=== PATIENT | female | born 1980 | race Caucasian/White ===

== ENCOUNTER 2018-06-26 12:58 | Emergency (ER) | payer BC ==
[~2018-06-26] VITALS: Ht 175.3 cm; Wt 65.9 kg
[2018-06-26 13:04] VITALS: TEMP 99
[2018-06-26 13:36] LABS: BASO # 0.1 (0.0-0.2); BASO % 0.5 % (0.0-2.0); EOS % 0.2 % (0-4.0); GRAN % 64.3 % (42.2-75.2); HEMOGLOBIN 12.3 g/dl (12.5-16.0); LYMPH # 2.7 (1.2-3.4); MEAN CELL VOLUME 92 fl (80.0-100.0); MEAN CORPUSCULAR HEMOGLOBIN 31 pg (27.0-31.0); MEAN CORPUSCULAR HGB CONC 33 g/dl (33.0-37.0); MEAN PLATELET VOLUME 9.6 fl (7.4-10.4); MONO # 0.5 (0.1-0.6); MONO % 5.8 % (1.7-9.3); PLATELET COUNT 240 K/mm3 (130-400); RED BLOOD COUNT 4.03 M/mm3 (4.10-5.30); REDCELL DISTRIBUTION WIDTH-CV 12.4 % (11.5-14.5)
[2018-06-26 13:46] LABS: BILIRUBIN,TOTAL 0.4 mg/dL (0.0-1.0); CALCIUM 8.9 mg/dL (8.4-10.2); CREATININE, serum 0.69 mg/dL (0.52-1.25); POTASSIUM 3.9 mmol/L (3.4-5.0); TOTAL PROTEIN 7.1 gm/dL (6.4-8.2)
[2018-06-26 13:57] LABS: TROPONIN-I 0.013 ng/mL (0.000-0.034)
[2018-06-26] MEDS ORDERED: LEVORA-28 30 MC1 TA1 PO (14:01)
[2018-06-26] MEDS ORDERED: AMBIEN CR6.25 MG PO (14:02)
[2018-06-26 15:49] VITALS: BP 118/56
[2018-06-26 17:04] VITALS: PULSE 67
== END 2018-06-26 17:05 | disposition home or self-care (01) ==
LOC: COL.ER 12:58
PROVIDERS: Physician Assistant
DX: R07.89 Other chest pain (principal)

== ENCOUNTER → 2021-01-23 | Outpatient (CLI) | payer BC ==
[~2021-01-23] MED LIST: AMBIEN CR6.25 MG PO; LEVORA-28 30 MC1 TA1 PO
== END ==
LOC: MC.RAD 12:47
DX: N63.11 Unspecified lump in the right breast, upper outer quadrant (principal); N63.21 Unspecified lump in the left breast, upper outer quadrant